=== PATIENT | female | born 1955 | race Caucasian/White ===

== ENCOUNTER 2021-07-01 15:23 | Inpatient (IN) | payer MEDICARE, OTHER ==
[~2021-07-01] VITALS: Ht 167.6 cm; Wt 45.8 kg
[2021-07-01] MEDS ORDERED: OLAN5TAB3 PO (16:01)
[2021-07-01] MEDS ORDERED: GABA600T12 PO (16:01)
--- NOTE | 2021-07-01 16:02 | NUR ---
PT SEEN AND EVALUATED BY DR RUIZ.
--- NOTE | 2021-07-01 16:29 | NUR ---
MEDICATED FORHEADACHE AND LT ANKLE PAIN.
[2021-07-01] MEDS ORDERED: HYDROCODONE/APAP 5-325MG TABLET PO ONE (16:30)
--- NOTE | 2021-07-01 16:59 | NUR ---
PT MEDICALLY CLEARED BY DR RUIZ; COMFORTABLY WATCHING TV AT THIS TIME. REPORT GIVEN TO [facility].
--- NOTE | 2021-07-01 17:40 | NUR ---
Pt trans to [facility], NAD noted.
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
[2021-07-01 19:39] VITALS: BP 104/65
[2021-07-01 19:59] VITALS: BP 91/64
[2021-07-01] MEDS ORDERED: MAGNESIUM HYDROXIDE 30 ML LIQUID UDC PO PRN (20:00)
[2021-07-01] MEDS ORDERED: MAG HYDROX/AL HYDROX/SIMETH 30 ML LIQUID UDC PO PRN (20:00)
[2021-07-01] MEDS: HYDROCODONE/APAP 10-325 MG TABLET PO PRN (21:35)
[2021-07-01] MEDS: LORAZEPAM 1 MG TABLET PO PRN (22:17)
[2021-07-02] MEDS: TEMAZEPAM 7.5 MG CAPSULE PO PRN ×2 (01:14→21:26)
[2021-07-02] MEDS: HYDROCODONE/APAP 10-325 MG TABLET PO PRN ×5 (02:21→23:19)
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
[2021-07-02] MEDS: ACETAMINOPHEN 325 MG TABLET PO PRN (04:36)
[2021-07-02] MEDS: LORAZEPAM 1 MG TABLET PO PRN (04:36)
[2021-07-02 07:30] VITALS: BP 124/72
[2021-07-02 07:33] LABS: HEMATOCRIT 38.1 % (31.2-41.9); MEAN CORPUSCULAR HEMOGLOBIN 30.5 uug (24.7-32.8); MEAN CORPUSCULAR VOLUME 89.8 fL (75.5-95.3); PLATELET COUNT (AUTO) 301 K/uL (179-408)
[2021-07-02 08:10] LABS: BILIRUBIN,TOTAL 0.3 mg/dL (0.2-1.0); CREATININE 1.1 mg/dL (0.6-1.3); PHOSPHOROUS 5.4 mg/dL (2.5-4.9); POTASSIUM 4.8 mmol/L (3.5-5.1); TOTAL PROTEIN, SERUM 6.4 g/dL (6.4-8.2)
[2021-07-02] MEDS: GABAPENTIN 300 MG CAPSULE PO SCH ×3 (08:29→17:04)
[2021-07-02] MEDS: NICOTINE 21 MG/24HR PATCH TD SCH (08:29)
[2021-07-02 08:47] LABS: THYROID STIMULATING HORMONE 5.275 mIU/mL (0.358-3.740)
[2021-07-02] MEDS: FLUOXETINE HCL 20 MG CAPSULE PO SCH (12:36)
[2021-07-02] MEDS: LORAZEPAM 0.5 MG TABLET PO SCH ×2 (12:37→17:04)
--- NOTE | 2021-07-02 15:43 | NUR ---
Received patient awake in her room. A/O X 3 to person, place, environment. Pt. is calm, cooperative, isolative, complaining of having lots of pain after falling out of the window at home. Dr. Abdoulaye Moeller ordered CT scan without contrast STAT for her right heel at 14:45. [place] was given at 10:11 for pain rated 9 on the scale of 1 to 10, effective only for few hours. Patient ambulates with wheel chair. Self care. Active listening provided. Fall and safety precautions implemented.
[2021-07-02 20:00] VITALS: BP 98/61
[2021-07-02] MEDS ORDERED: TRAZODONE 50 MG TABLET PO SCH (21:00)
--- NOTE | 2021-07-03 00:19 | NUR ---
patient is calm now. resting quitly. prn effective.
[2021-07-03] MEDS: HYDROCODONE/APAP 10-325 MG TABLET PO PRN ×3 (05:53→20:27)
--- NOTE | 2021-07-03 06:40 | NUR ---
GPS: REMAIN COOPERATIVE WITH MEDS AND CARE. NO AGITATION NOTED. PAIN MEDS GIVEN X2 THROUGH THE NIGHT AND EFFECTIVE. SLEPT 8 HRS THROUGH THE NIGHT AFTER SLEEPING MEDS GIVEN. ASSISTED WITH ADL'S. CONTINUE PLAN OF CARE.
[2021-07-03 07:30] VITALS: BP 120/77
[2021-07-03] MEDS: LORAZEPAM 0.5 MG TABLET PO SCH ×3 (08:37→16:25)
[2021-07-03] MEDS: FLUOXETINE HCL 20 MG CAPSULE PO SCH (08:38)
[2021-07-03] MEDS: NICOTINE 21 MG/24HR PATCH TD SCH (08:38)
[2021-07-03] MEDS: GABAPENTIN 300 MG CAPSULE PO SCH ×3 (08:38→16:25)
--- NOTE | 2021-07-03 10:39 | NUR ---
JOSE Initial Discharge Note: Pt currently resides at [id number] [place] [id number]. Pt lives with her son Damian ([phone]). Damian stated to JOSE that he would like pt to return home upon discharge under the care of him and his fiance. Damian and pt stated pt does not have an outpatient psychiatrist. JOSE will work with pt and family to schedule a follow-up appointment for pt post discharge. JOSE will continue to work with pt, family and MD to ensure a safe and proper discharge plan.
--- NOTE | 2021-07-03 10:40 | NUR ---
JOSE Admit Source: Pt currently resides at [id number] [place] [id number]. Pt lives with her son Damian ([phone]). Damian stated to SW that he would like pt to return home upon discharge under the care of him and his fiance. Damian and pt stated pt does not have an outpatient psychiatrist. JOSE will work with pt and family to schedule a follow-up appointment for pt post discharge. JOSE will continue to work with pt, family and MD to ensure a safe and proper discharge plan.
--- NOTE | 2021-07-03 15:42 | NUR ---
Pt. is alert, oriented x 3 to person, place. Pt. is calm, quiet, withdrawn, isolative, cooperative. Ambulates with wheel chair, right heel fractured, boot ordered. Compliant with medications. Reassurance given. Fall and safety precautions implemented.
[2021-07-03 16:00] VITALS: BP 104/64
[2021-07-03] MEDS: NEPRO (VANILLA) 237 ML CAN PO SCH (17:00)
[2021-07-03 20:00] VITALS: BP 90/59
--- NOTE | 2021-07-03 20:35 | NUR ---
RECEIVED PATIENT IN HER BED. SHE IS NOTED AWAKE A/O X 3/ SHE IS ABLE TO VERBALIZED FEELING AND MAKE HER NEEDS KNOWN. PATIENT STATED THAT SHE IS HAVING RIGHT FOOT PAIN 10/10 ON THE PAIN SCALE. SHE WAS GIVEN NORCO 10-325MG PO PRN FOR SEVERE PAIN. V/S are stable. She was given PO fluids and snacks. She is reassure for her safety. safety and fall precautions are in place. will continue to monitor.
[2021-07-03] MEDS: TRAZODONE 50 MG TABLET PO SCH (20:54)
[2021-07-03 23:29] VITALS: BP 145/82
[2021-07-04] MEDS: HYDROCODONE/APAP 10-325 MG TABLET PO PRN ×3 (02:36→15:57)
[2021-07-04 07:30] VITALS: BP 103/59
[2021-07-04] MEDS: LORAZEPAM 0.5 MG TABLET PO SCH ×3 (09:10→16:42)
[2021-07-04] MEDS: GABAPENTIN 300 MG CAPSULE PO SCH ×3 (09:10→16:42)
[2021-07-04] MEDS: NICOTINE 21 MG/24HR PATCH TD SCH (09:10)
[2021-07-04] MEDS: FLUOXETINE HCL 20 MG CAPSULE PO SCH (09:10)
[2021-07-04] MEDS: NEPRO (VANILLA) 237 ML CAN PO SCH ×2 (10:22→17:00)
[2021-07-04 17:37] VITALS: BP 110/64
[2021-07-04 20:00] VITALS: BP 102/66
[2021-07-04] MEDS: TRAZODONE 50 MG TABLET PO SCH (21:43)
[2021-07-04] MEDS: ACETAMINOPHEN 325 MG TABLET PO PRN (21:44)
[2021-07-04] MEDS: TEMAZEPAM 7.5 MG CAPSULE PO PRN (21:44)
[2021-07-05] MEDS: HYDROCODONE/APAP 10-325 MG TABLET PO PRN ×3 (04:04→16:37)
[2021-07-05 08:18] VITALS: BP 105/70
[2021-07-05] MEDS: FLUOXETINE HCL 10 MG CAPSULE PO SCH (08:25)
[2021-07-05] MEDS: GABAPENTIN 300 MG CAPSULE PO SCH ×3 (08:26→16:11)
[2021-07-05] MEDS: LORAZEPAM 0.5 MG TABLET PO SCH ×3 (08:26→16:11)
[2021-07-05] MEDS: NEPRO (VANILLA) 237 ML CAN PO SCH ×2 (08:32→17:00)
[2021-07-05] MEDS: NICOTINE 21 MG/24HR PATCH TD SCH (08:33)
[2021-07-05] MEDS ORDERED: FLUOXETINE HCL 20 MG CAPSULE PO SCH (09:00)
--- NOTE | 2021-07-05 16:23 | NUR ---
Gps/Coach Builder- Cam boot for right leg not available , P.T. apparently ordered larger size . Patient uses wheel chair to roam around, alert, oriented, interacts when engaged. Encouraged elevating her right leg when in bed., patient claimed right heel throbs when she's oob
[2021-07-05 16:27] VITALS: BP 114/63
[2021-07-05 20:00] VITALS: BP 110/75
[2021-07-05] MEDS: TRAZODONE 50 MG TABLET PO SCH (20:18)
[2021-07-06] MEDS: HYDROCODONE/APAP 10-325 MG TABLET PO PRN ×4 (02:14→20:46)
[2021-07-06 07:30] VITALS: BP 95/62
[2021-07-06] MEDS: LORAZEPAM 0.5 MG TABLET PO SCH ×3 (08:07→16:51)
[2021-07-06] MEDS: NICOTINE 21 MG/24HR PATCH TD SCH (08:07)
[2021-07-06] MEDS: FLUOXETINE HCL 10 MG CAPSULE PO SCH (08:07)
[2021-07-06] MEDS: GABAPENTIN 300 MG CAPSULE PO SCH ×3 (08:07→16:51)
[2021-07-06] MEDS: NEPRO (VANILLA) 237 ML CAN PO SCH ×2 (08:12→16:51)
[2021-07-06 16:00] VITALS: BP 99/63
[2021-07-06 20:02] VITALS: BP 101/62
[2021-07-06] MEDS: TRAZODONE 50 MG TABLET PO SCH (21:31)
--- NOTE | 2021-07-06 21:31 | NUR ---
unable to scan barcode of bedtime dose of trazodone. entered dose using manual barcode.
[2021-07-06] MEDS: TEMAZEPAM 7.5 MG CAPSULE PO PRN (22:36)
[2021-07-07] MEDS: LORAZEPAM 1 MG TABLET PO PRN (00:04)
[2021-07-07] MEDS: HYDROCODONE/APAP 10-325 MG TABLET PO PRN ×4 (03:21→22:18)
--- NOTE | 2021-07-07 05:59 | NUR ---
Received to care, lying in bed, with alarm on for safety, needy at times. PRN [place] was given twice for severe right heel pain, at 2045, and 320. She was given both PRN Restoril, and PRN Ativan, but she only slept 4 hours total. Continues to sleep, at this time. No distress noted. Will continue to monitor closely.
[2021-07-07 07:53] VITALS: BP 101/59
[2021-07-07] MEDS: FLUOXETINE HCL 10 MG CAPSULE PO SCH (08:26)
[2021-07-07] MEDS: LORAZEPAM 0.5 MG TABLET PO SCH (08:26)
[2021-07-07] MEDS: NICOTINE 21 MG/24HR PATCH TD SCH (08:26)
[2021-07-07] MEDS: GABAPENTIN 300 MG CAPSULE PO SCH ×3 (08:26→17:00)
[2021-07-07] MEDS: NEPRO (VANILLA) 237 ML CAN PO SCH ×2 (08:29→17:01)
--- NOTE | 2021-07-07 15:02 | NUR ---
GPS: Nursing Notes: Thought Disorder: Patient is awake and responding to her name, cooperative with nursing care, A/Ox3, disorganized, unkempt appearance, isolative and withdrawn in her room, depressed mood and anxious affect, needs assistance with ADL's, needs a lot of prompting to participate in therapeutic groups, unable to formulate a viable plan for self care, continue to monitor for safety, continue with treatment plan.
[2021-07-07] MEDS: ENOXAPARIN SODIUM 40 MG/0.4 ML DISP.SYRIN SQ SCH (16:28)
[2021-07-07 18:02] VITALS: BP 104/60
[2021-07-07 19:58] VITALS: BP 101/56
[2021-07-07] MEDS ORDERED: TRAZODONE 50 MG TABLET PO SCH (21:00)
[2021-07-08] MEDS: ACETAMINOPHEN 325 MG TABLET PO PRN (03:10)
[2021-07-08] MEDS: TEMAZEPAM 7.5 MG CAPSULE PO PRN (03:10)
--- NOTE | 2021-07-08 04:16 | NUR ---
Patient has been up most of the night on and off. The patient wakes up and cries loudly in pain. During the middle of the night this fiction writer gave patient a shower. Pain noted with any movement of the right foot. Liquor Grinder Mill Operator turned patient on her side to relieve the pressure on the heel and supplied as packs as needed. PRN medications given when possible. Fluids encouraged and assistance provided to the bathroom. Safety stratiges in place. Monitoring VS closely and frequent rounding done. The patient is depressed but denies SI.
[2021-07-08] MEDS: HYDROCODONE/APAP 10-325 MG TABLET PO PRN ×4 (06:03→23:56)
[2021-07-08 08:06] VITALS: BP 96/55
[2021-07-08] MEDS: GABAPENTIN 300 MG CAPSULE PO SCH ×3 (08:49→17:03)
[2021-07-08] MEDS: LORAZEPAM 0.5 MG TABLET PO SCH (08:49)
[2021-07-08] MEDS: FLUOXETINE HCL 20 MG CAPSULE PO SCH (08:49)
[2021-07-08] MEDS: NICOTINE 21 MG/24HR PATCH TD SCH (08:50)
[2021-07-08] MEDS: ENOXAPARIN SODIUM 40 MG/0.4 ML DISP.SYRIN SQ SCH (08:51)
[2021-07-08] MEDS ORDERED: FLUOXETINE HCL 10 MG CAPSULE PO SCH (09:00)
[2021-07-08] MEDS: NEPRO (VANILLA) 237 ML CAN PO SCH ×2 (09:50→17:03)
--- NOTE | 2021-07-08 13:11 | NUR ---
JOSE Family Contact: JOSE contacted pt's son, (DPLUANNE Salgado [phone]) and left a voicemail for a call back notifying Damian for the updated discharge plan for the pt on to [facility] [address] [place] [address] ([phone]) for a proper rehab recovery prior to returning home.
[2021-07-08 20:15] VITALS: BP 101/54
[2021-07-08] MEDS: TRAZODONE 50 MG TABLET PO SCH (20:20)
[2021-07-08] MEDS: LORAZEPAM 1 MG TABLET PO PRN (20:20)
[2021-07-09] MEDS: ACETAMINOPHEN 325 MG TABLET PO PRN (02:31)
[2021-07-09] MEDS: TEMAZEPAM 7.5 MG CAPSULE PO PRN (02:32)
[2021-07-09] MEDS: HYDROCODONE/APAP 10-325 MG TABLET PO PRN ×3 (05:28→17:53)
[2021-07-09 07:30] VITALS: BP 92/55
[2021-07-09] MEDS: LORAZEPAM 0.5 MG TABLET PO SCH (08:14)
[2021-07-09] MEDS: GABAPENTIN 300 MG CAPSULE PO SCH ×3 (08:14→16:40)
[2021-07-09] MEDS: FLUOXETINE HCL 20 MG CAPSULE PO SCH (08:14)
[2021-07-09] MEDS: NICOTINE 21 MG/24HR PATCH TD SCH (08:14)
[2021-07-09] MEDS: NEPRO (VANILLA) 237 ML CAN PO SCH ×2 (08:15→16:40)
[2021-07-09] MEDS: ENOXAPARIN SODIUM 40 MG/0.4 ML DISP.SYRIN SQ SCH (08:29)
[2021-07-09 16:00] VITALS: BP 96/58
--- NOTE | 2021-07-09 18:40 | NUR ---
Patient remained stable. PRN pain medication given 2x in the shift. denies SI or harm to others. participated in the group. no distress identified. all needs attended. all due meds given.safety measures maintained. will endorse to the next shift for continuity of care.
[2021-07-09 20:00] VITALS: BP 98/63
[2021-07-09] MEDS: TRAZODONE 50 MG TABLET PO SCH (20:39)
[2021-07-10] MEDS: HYDROCODONE/APAP 10-325 MG TABLET PO PRN ×3 (00:02→13:04)
[2021-07-10 07:30] VITALS: BP 95/56
[2021-07-10] MEDS: GABAPENTIN 300 MG CAPSULE PO SCH ×2 (08:46→13:05)
[2021-07-10] MEDS: NEPRO (VANILLA) 237 ML CAN PO SCH (08:46)
[2021-07-10] MEDS: FLUOXETINE HCL 20 MG CAPSULE PO SCH (08:46)
[2021-07-10] MEDS: ENOXAPARIN SODIUM 40 MG/0.4 ML DISP.SYRIN SQ SCH (08:48)
[2021-07-10] MEDS: NICOTINE 21 MG/24HR PATCH TD SCH (08:48)
--- NOTE | 2021-07-10 11:11 | NUR ---
JOSE Discharge Note: Pt will be discharged to [facility] [address], [place] [address] ([phone]) via Ambulance transportation at 12PM. JOSE spoke with admin coordinator, MANGO at the facility who states they are ready to accept the patient today. Pt is aware and agreeable with discharge plans. Pt is alert and oriented x4, is unable to plan for self-care at this time; however, is willing to accept care at SNF. Pt denies any suicidal or homicidal ideation. JOSE left pts son, Damian ([phone]) 2 voicemail regarding the pts discharge plan to [facility]. Pt will follow-up at the facility with Psychiatrist, Dr. Jaquez and Metal Hanger, Dr. Howell. Pt presents with calm mood and congruent affect.
--- NOTE | 2021-07-10 12:00 | NUR ---
Gps/Lvm- Patient was well informed of discharge plan today to [facility]. All belongings given back to patient. Reviewed discharge instructions, verbalized understanding.
--- NOTE | 2021-07-10 14:00 | NUR ---
Gps/Load Blocker- Called report to Rahat Nguyen [facility], report given to Gabbie SINHA. All belongings given tback to patient. Discharged in good spirit with adequate pain relief. , no distress , no discomfort.
--- NOTE | 2021-07-10 14:18 | NUR ---
SW Family Contact: SW contacted and left another voicemail for pt's son, LUPE Salgado [phone] regarding pt's discharge today to [facility] [address] [place] [address] ([phone]).
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
== END 2021-07-10 14:00 | DRG 885 ==
LOC: ER 15:23 → GPS 17:23
PROVIDERS: ADMIT Psychiatry & Neurology Psychosomatic Medicine; ATTEND Nurse Practitioner Family
DX: F33.2 Major depressive disorder, recurrent severe without psychotic features (principal); N18.30 Chronic kidney disease, stage 3 unspecified; G11.9 Hereditary ataxia, unspecified; F41.0 Panic disorder [episodic paroxysmal anxiety]; S92.001A Unspecified fracture of right calcaneus, initial encounter for closed fracture; W13.4XXA Fall from, out of or through window, initial encounter; Y93.89 Activity, other specified; Y92.009 Unspecified place in unspecified non-institutional (private) residence as the place of occurrence of the external cause; R73.03 Prediabetes; E03.8 Other specified hypothyroidism; F17.210 Nicotine dependence, cigarettes, uncomplicated; F09 Unspecified mental disorder due to known physiological condition; F19.90 Other psychoactive substance use, unspecified, uncomplicated; H81.10 Benign paroxysmal vertigo, unspecified ear; J44.9 Chronic obstructive pulmonary disease, unspecified; Z88.8 Allergy status to other drugs, medicaments and biological substances; F10.20 Alcohol dependence, uncomplicated; I70.0 Atherosclerosis of aorta; M47.9 Spondylosis, unspecified; Z96.612 Presence of left artificial shoulder joint
CPT/HCPCS: 36415; 73610; 73630; 73700; 83735; 84100; 84443; 85025; 97161; A4663; J1650